=== PATIENT | female | born 1970 | race American Indian/Alaskan Native ===

== ENCOUNTER 2019-12-22 09:34 | Outpatient (CLI) | payer OTHER ==
--- NOTE | 2019-12-24 11:58 | XRay Report ---
LUMBAR SPINE AP AND LATERAL VIEW INDICATION / CLINICAL INFORMATION: low back pain /disability exam. COMPARISON: None available. FINDINGS: BONES/JOINT(S): No acute fracture or subluxation. There is mild disc height loss at L4-5 with reactiv e endplate sclerosis and osteophyte formation area and remaining disc heights appear normal. SOFT TISSUES: No significant abnormality. ADDITIONAL FINDINGS: None. Signer Name: Roger Turcios MD Signed: 12/22/2019 2:46 PM Workstation Name: [id number]
== END 2019-12-22 09:35 | disposition home or self-care (01) ==
LOC: XRAY 09:34
PROVIDERS: ATTEND Internal Medicine
DX: M41.86 Other forms of scoliosis, lumbar region (principal); M25.78 Osteophyte, vertebrae; K76.0 Fatty (change of) liver, not elsewhere classified; K21.9 Gastro-esophageal reflux disease without esophagitis; R60.0 Localized edema
CPT/HCPCS: 72100